=== PATIENT | female | born 1930 | race Caucasian/White ===

== ENCOUNTER 2018-01-01 07:32 | Inpatient (IN) | payer OTHER ==
[~2018-01-01] VITALS: Ht 157.5 cm; Wt 62.8 kg
[~2018-01-01 07:32] MED LIST: NOHOMEMEDS
[2018-01-01 08:41] LABS: ALBUMIN 3.4 g/dL (3.2-4.8)
[2018-01-01 08:42] LABS: CHLORIDE 98 mEq/L (99-109); POTASSIUM 3.5 mEq/L (3.7-5.4); SODIUM 136 mEq/L (136-147)
[2018-01-01 08:43] LABS: HEMATOCRIT 37.4 % (36.0-46.0); HEMOGLOBIN 12.1 G/DL (11.9-15.5); MCH 29.7 PG (29.0-34.0); MCHC 32.4 G/DL (30.0-36.0); MCV 91.7 FL (83-99); NRBC (%) 0.2 /100 WBC (0-0); PLATELET COUNT 228 K/uL (156-360); RBC DIS.WIDTH-CV 15.5 % (11.8-14.6); RBC DIS.WIDTH-SD 51.9 % (39-53); RED BLOOD COUNT 4.08 M/uL (3.80-5.20)
[2018-01-01 08:44] LABS: GLUCOSE 102 mg/dL (70-99); TOTAL PROTEIN 6.3 g/dL (6.4-8.3)
[2018-01-01 08:47] LABS: ALKALINE PHOSPHATASE 66 IU/L (3-129)
[2018-01-01 08:48] LABS: CREATININE 1.1 mg/dL (0.6-1.3); GFR ESTIMATE (CALCULATED) 50 mL/min/
[2018-01-01 08:49] LABS: AST (GOT) 38 IU/L (2-34); UREA NITROGEN (BUN) 24 mg/dL (9-23)
[2018-01-01 08:51] LABS: ALT (GPT) 37 IU/L (3-49)
[2018-01-01 08:53] LABS: TROP-I INTERPRETATION NEGATIVE; TROPONIN-I 0.05 ng/mL (0.0-0.30)
[2018-01-01] MEDS ORDERED: DILTIAZEM 24HR240 MG PO (10:47)
[2018-01-01] MEDS ORDERED: FUROSEMIDE40 MG PO (10:47)
[2018-01-01] MEDS ORDERED: PREDNISONE10 MG PO (10:47)
[2018-01-01] MEDS ORDERED: PRAVASTATIN SOD40 MG PO (10:48)
[2018-01-01] MEDS ORDERED: METOPROLOL TART25 MG PO (10:48)
[2018-01-01] MEDS ORDERED: LOSARTAN POTAS100 MG PO (10:49)
[2018-01-01] MEDS ORDERED: VITAMIN D31000 UNIT PO (10:50)
[2018-01-01] MEDS ORDERED: ELIQUIS2.5 MG PO (10:50)
[2018-01-01] MEDS ORDERED: KLOR-CON 1010 ME1 PO (10:51)
[2018-01-01] MEDS ORDERED: LO-DOSE ASPIRIN81 M2 PO (10:51)
[2018-01-01 14:38] VITALS: BP 113/58
[2018-01-01 20:21] VITALS: BP 125/77
[2018-01-02] VITALS (7 sets, daily range): BP systolic 102–162; BP diastolic 53–81
[2018-01-02 05:55] LABS: BASOPHIL (%) 0 % (0-1); EOSINOPHIL (%) 0 % (0-5); HEMATOCRIT 31.7 % (36.0-46.0); IMMATURE GRANULOCYTE (%) 0.8 % (0.0-0.7); LYMPHOCYTE (%) 9.9 % (15-42); LYMPHOCYTE COUNT 0.7 K/uL (1.0-2.8); MCH 28.8 PG (29.0-34.0); MCHC 31.5 G/DL (30.0-36.0); MCV 91.4 FL (83-99); MONOCYTE (%) 8.1 % (3-12); MONOCYTE COUNT 0.6 K/uL (0-0.8); NEUTROPHIL (%) 81.2 % (45-76); NEUTROPHIL COUNT 6.1 K/uL (1.8-6.4); PLATELET COUNT 203 K/uL (156-360); RBC DIS.WIDTH-CV 15.8 % (11.8-14.6); RBC DIS.WIDTH-SD 52.4 % (39-53); RED BLOOD COUNT 3.47 M/uL (3.80-5.20); WHITE BLOOD COUNT 7.5 K/uL (4.1-10.2)
[2018-01-02 06:13] LABS: CHLORIDE 101 MEQ/L (99-109); CREATININE 1.3 MG/DL (0.6-1.3); GFR ESTIMATE (CALCULATED) 41 mL/min/; GLUCOSE 111 mg/dL (70-99); POTASSIUM 3.8 MEQ/L (3.7-5.4); SODIUM 138 MEQ/L (136-147); UREA NITROGEN (BUN) 22 mg/dL (9-23)
[2018-01-03 08:11] VITALS: BP 135/66
[2018-01-03 11:50] VITALS: BP 133/67
[2018-01-03 15:32] VITALS: BP 129/67
[2018-01-03 19:41] VITALS: BP 134/61
[2018-01-03 23:37] VITALS: BP 132/71
[2018-01-04 03:15] VITALS: BP 137/68
[2018-01-04 06:29] LABS: HEMATOCRIT 32.9 % (36.0-46.0); HEMOGLOBIN 10.3 G/DL (11.9-15.5); MCH 28.8 PG (29.0-34.0); MCHC 31.3 G/DL (30.0-36.0); MCV 91.9 FL (83-99); PLATELET COUNT 246 K/uL (156-360); RBC DIS.WIDTH-CV 15.7 % (11.8-14.6); RBC DIS.WIDTH-SD 53.2 % (39-53); RED BLOOD COUNT 3.58 M/uL (3.80-5.20); WHITE BLOOD COUNT 7.8 K/uL (4.1-10.2)
[2018-01-04 06:49] LABS: CHLORIDE 103 MEQ/L (99-109); CREATININE 1.1 MG/DL (0.6-1.3); GFR ESTIMATE (CALCULATED) 50 mL/min/; GLUCOSE 103 mg/dL (70-99); SODIUM 137 MEQ/L (136-147); UREA NITROGEN (BUN) 19 mg/dL (9-23)
[2018-01-04 06:53] LABS: BASOPHIL (%) 0.1 % (0-1); EOSINOPHIL (%) 0.3 % (0-5); IMMATURE GRANULOCYTE (%) 0.9 % (0.0-0.7); LYMPHOCYTE (%) 13.6 % (15-42); LYMPHOCYTE COUNT 1.1 K/uL (1.0-2.8); MONOCYTE (%) 6.9 % (3-12); MONOCYTE COUNT 0.5 K/uL (0-0.8); NEUTROPHIL (%) 78.2 % (45-76); NEUTROPHIL COUNT 6.1 K/uL (1.8-6.4)
[2018-01-04 07:38] VITALS: BP 145/66
[2018-01-04 10:50] VITALS: BP 129/59
[2018-01-04 15:43] VITALS: BP 157/65
[2018-01-04 19:18] VITALS: BP 169/77
[2018-01-04 23:13] VITALS: BP 142/72
[2018-01-05 03:32] VITALS: BP 153/76
[2018-01-05 08:39] VITALS: BP 151/75
[2018-01-05 12:53] VITALS: BP 147/68
[2018-01-05 16:46] VITALS: BP 173/80
[2018-01-05 23:53] VITALS: BP 147/72
[2018-01-06 08:24] VITALS: BP 155/77
[2018-01-06] MEDS ORDERED: TYLENOL REGULA325 MG PO (15:49)
[2018-01-06] MEDS ORDERED: ADVAIR HFA120 INHAL1 IH (16:17)
[2018-01-06] MEDS ORDERED: PROAIR HFA8.5 GM IH (16:17)
[2018-01-06 16:44] VITALS: BP 152/72
[2018-01-07] MEDS ORDERED: PROAIR HFA8.5 GM IH (22:21)
[2018-01-07] MEDS ORDERED: ADVAIR HFA120 INHAL1 IH (22:22)
== END 2018-01-06 17:55 | disposition home health service (06) | DRG 194 ==
LOC: EME 07:32 → EDOF 12:10 → 3EAST 12:10 → ENRESERV 12:41 → EDOF 12:47 → ENRESERV 13:23 → 3EAST 13:43
PROVIDERS: Family Medicine Sports Medicine; Nurse Practitioner Family
DX: J10.00 Influenza due to other identified influenza virus with unspecified type of pneumonia (principal); J44.0 Chronic obstructive pulmonary disease with (acute) lower respiratory infection; J44.1 Chronic obstructive pulmonary disease with (acute) exacerbation; J90 Pleural effusion, not elsewhere classified; J10.1 Influenza due to other identified influenza virus with other respiratory manifestations; B97.89 Other viral agents as the cause of diseases classified elsewhere; J18.9 Pneumonia, unspecified organism; R09.02 Hypoxemia; N18.9 Chronic kidney disease, unspecified; I48.0 Paroxysmal atrial fibrillation; K21.9 Gastro-esophageal reflux disease without esophagitis; I25.10 Atherosclerotic heart disease of native coronary artery without angina pectoris; I12.9 Hypertensive chronic kidney disease with stage 1 through stage 4 chronic kidney disease, or unspecified chronic kidney disease; D64.9 Anemia, unspecified; E78.5 Hyperlipidemia, unspecified; R80.9 Proteinuria, unspecified; Z87.891 Personal history of nicotine dependence; Z79.01 Long term (current) use of anticoagulants; Z79.82 Long term (current) use of aspirin; Z99.81 Dependence on supplemental oxygen; I25.2 Old myocardial infarction; Z88.2 Allergy status to sulfonamides; Z88.6 Allergy status to analgesic agent; Z91.013 Allergy to seafood
CPT/HCPCS: 71045; 71046; 80048; 80053; 83605; 83880; 84484; 85025; 85027; 87040; 87449; 87502; 90686; 93005; 94640; 94640 76; 94760; 94799; 97530 GP; 99202; 99281; 99285; J0456; J0696; J1956; J7030; J7512

== ENCOUNTER 2018-01-07 20:38 | Inpatient (IN) | payer OTHER ==
[~2018-01-07] VITALS: Ht 157.5 cm; Wt 64.2 kg
[~2018-01-07 20:38] MED LIST changes: +ADVAIR HFA120 INHAL1 IH; +DILTIAZEM 24HR240 MG PO; +ELIQUIS2.5 MG PO; +FUROSEMIDE40 MG PO; +KLOR-CON 1010 ME1 PO; +LO-DOSE ASPIRIN81 M2 PO; +LOSARTAN POTAS100 MG PO; +METOPROLOL TART25 MG PO; +PRAVASTATIN SOD40 MG PO; +PREDNISONE10 MG PO; +PROAIR HFA8.5 GM IH; +TYLENOL REGULA325 MG PO; +VITAMIN D31000 UNIT PO
[2018-01-07 21:08] LABS: HEMATOCRIT 36.8 % (36.0-46.0); MCH 29.5 PG (29.0-34.0); MCHC 32.6 G/DL (30.0-36.0); MCV 90.4 FL (83-99); NRBC (%) 0.1 /100 WBC (0-0); RBC DIS.WIDTH-CV 14.6 % (11.8-14.6); RBC DIS.WIDTH-SD 48.9 % (39-53); RED BLOOD COUNT 4.07 M/uL (3.80-5.20); WHITE BLOOD COUNT 14.6 K/uL (4.1-10.2)
[2018-01-07 21:11] LABS: PLATELET COUNT 408 K/uL (156-360)
[2018-01-07 21:34] LABS: TROP-I INTERPRETATION NEGATIVE; TROPONIN-I 0.04 ng/mL (0.0-0.30)
[2018-01-07 21:39] LABS: CHLORIDE 100 MEQ/L (99-109); GFR ESTIMATE (CALCULATED) 56 mL/min/; GLUCOSE 127 mg/dL (70-99); POTASSIUM 3.7 MEQ/L (3.7-5.4); SODIUM 140 MEQ/L (136-147); UREA NITROGEN (BUN) 20 mg/dL (9-23)
[2018-01-07 21:50] LABS: CARBON DIOXIDE (BICARBONATE) 34.4 MEQ/L (20-31)
[2018-01-07] MEDS ORDERED: PROAIR HFA8.5 GM IH (22:21)
[2018-01-07] MEDS ORDERED: ADVAIR HFA120 INHAL1 IH (22:22)
[2018-01-08 03:20] VITALS: BP 141/78
[2018-01-08 08:00] VITALS: BP 140/85
[2018-01-08 09:58] LABS: BASE EXCESS 8.5 mEq/L (-3 to +3); BICARBONATE 33.4 mEq/L (22-26); CARBOXY HGB 4.2 % (0-5); METHEMOGLOBIN 1.3 % (0-1.5); PCO2 47 mm Hg (35-45); PO2 65 mm Hg (80-100); pH 7.46 (7.35-7.45)
[2018-01-08 09:59] LABS: COMMENTS - BLOOD GASES A+C; DEVICE NC; O2 FLOW 3 L/MIN; SITE LR
[2018-01-08 11:00] VITALS: BP 131/77
[2018-01-08 13:10] LABS: TROP-I INTERPRETATION NEGATIVE; TROPONIN-I 0.04 ng/mL (0.0-0.30)
[2018-01-08 15:55] VITALS: BP 125/68
[2018-01-08 18:38] LABS: TROP-I INTERPRETATION NEGATIVE; TROPONIN-I 0.03 ng/mL (0.0-0.30)
[2018-01-08 20:31] VITALS: BP 146/87
[2018-01-08 23:23] VITALS: BP 154/88
[2018-01-09 00:34] LABS: TROP-I INTERPRETATION NEGATIVE; TROPONIN-I 0.03 ng/mL (0.0-0.30)
[2018-01-09 05:00] VITALS: BP 145/86
[2018-01-09 06:19] LABS: BASOPHIL (%) 0.1 % (0-1); EOSINOPHIL (%) 0 % (0-5); IMMATURE GRANULOCYTE (%) 1.1 % (0.0-0.7); LYMPHOCYTE COUNT 0.5 K/uL (1.0-2.8); MCH 28.8 PG (29.0-34.0); MCHC 32.4 G/DL (30.0-36.0); MONOCYTE (%) 2.6 % (3-12); MONOCYTE COUNT 0.4 K/uL (0-0.8); NEUTROPHIL (%) 93.2 % (45-76); NEUTROPHIL COUNT 14.5 K/uL (1.8-6.4); NRBC (%) 0.2 /100 WBC (0-0); PLATELET COUNT 427 K/uL (156-360); RBC DIS.WIDTH-CV 14.8 % (11.8-14.6); RBC DIS.WIDTH-SD 47.8 % (39-53); RED BLOOD COUNT 3.82 M/uL (3.80-5.20); WHITE BLOOD COUNT 15.5 K/uL (4.1-10.2)
[2018-01-09 06:30] LABS: TROP-I INTERPRETATION NEGATIVE; TROPONIN-I 0.04 ng/mL (0.0-0.30)
[2018-01-09 06:41] LABS: CHLORIDE 94 MEQ/L (99-109); GFR ESTIMATE (CALCULATED) 35 mL/min/; POTASSIUM 3.6 MEQ/L (3.7-5.4); SODIUM 136 MEQ/L (136-147); UREA NITROGEN (BUN) 24 mg/dL (9-23)
[2018-01-09 06:43] LABS: CREATININE 1.5 MG/DL (0.6-1.3); GLUCOSE 209 mg/dL (70-99)
[2018-01-09 08:05] VITALS: BP 147/69
[2018-01-09 11:21] VITALS: BP 139/71
[2018-01-09 12:35] LABS: TROP-I INTERPRETATION NEGATIVE; TROPONIN-I 0.03 ng/mL (0.0-0.30)
[2018-01-09 16:44] VITALS: BP 147/87
[2018-01-09 18:50] LABS: TROP-I INTERPRETATION NEGATIVE; TROPONIN-I 0.04 ng/mL (0.0-0.30)
[2018-01-09 21:00] VITALS: BP 154/82
[2018-01-10 00:57] VITALS: BP 138/84
[2018-01-10 01:01] LABS: TROP-I INTERPRETATION NEGATIVE; TROPONIN-I 0.04 ng/mL (0.0-0.30)
[2018-01-10 03:35] VITALS: BP 146/66
[2018-01-10 07:48] LABS: BASOPHIL (%) 0.1 % (0-1); EOSINOPHIL (%) 0 % (0-5); HEMATOCRIT 32.1 % (36.0-46.0); HEMOGLOBIN 10.4 G/DL (11.9-15.5); IMMATURE GRANULOCYTE (%) 0.7 % (0.0-0.7); LYMPHOCYTE (%) 2.2 % (15-42); LYMPHOCYTE COUNT 0.4 K/uL (1.0-2.8); MCH 29.4 PG (29.0-34.0); MCHC 32.4 G/DL (30.0-36.0); MCV 90.7 FL (83-99); MONOCYTE (%) 4.8 % (3-12); MONOCYTE COUNT 0.9 K/uL (0-0.8); NEUTROPHIL (%) 92.2 % (45-76); NEUTROPHIL COUNT 17.7 K/uL (1.8-6.4); NRBC (%) 0.1 /100 WBC (0-0); PLATELET COUNT 407 K/uL (156-360); RBC DIS.WIDTH-CV 15.1 % (11.8-14.6); RBC DIS.WIDTH-SD 49.7 % (39-53); RED BLOOD COUNT 3.54 M/uL (3.80-5.20); WHITE BLOOD COUNT 19.2 K/uL (4.1-10.2)
[2018-01-10 07:54] LABS: INTER. NORMALIZED RATIO 1.4
[2018-01-10 07:58] LABS: PTT 23.1 SEC (25-37)
[2018-01-10 08:04] LABS: TROP-I INTERPRETATION NEGATIVE; TROPONIN-I 0.05 ng/mL (0.0-0.30)
[2018-01-10 08:14] LABS: CHLORIDE 96 MEQ/L (99-109); CREATININE 1.7 MG/DL (0.6-1.3); GFR ESTIMATE (CALCULATED) 30 mL/min/; GLUCOSE 159 mg/dL (70-99); POTASSIUM 3.5 MEQ/L (3.7-5.4); SODIUM 137 MEQ/L (136-147); UREA NITROGEN (BUN) 33 mg/dL (9-23)
[2018-01-10 08:18] VITALS: BP 134/61
[2018-01-10 11:05] VITALS: BP 141/64
[2018-01-10 13:50] LABS: TROP-I INTERPRETATION NEGATIVE; TROPONIN-I 0.05 ng/mL (0.0-0.30)
[2018-01-10 14:54] LABS: TYPE OF FLUID PLEURAL
[2018-01-10 15:07] VITALS: BP 144/74
[2018-01-10 15:32] LABS: APPEARANCE HAZY-YELLOW; BODY FLUID RBC'S 1000 /MM^3 (0-100); BODY FLUID WBC'S 157 /MM^3 (0-500)
[2018-01-10 15:37] LABS: BODY FLUID EOSINOPHILS 0 % (0-25); MONONUCLEAR WBC'S 73 %; POLYNUCLEAR WBC'S 27 % (0-25)
[2018-01-10 15:53] LABS: BODY FLUID GLUCOSE 205 MG/DL; BODY FLUID LDH 103 IU/L; BODY FLUID PROTEIN < 3.0 G/DL
[2018-01-10 18:38] LABS: TROP-I INTERPRETATION NEGATIVE; TROPONIN-I 0.05 ng/mL (0.0-0.30)
[2018-01-10 18:45] LABS: GLUCOSE 151 mg/dL (70-99); LACTATE DEHYDROGENASE 322 IU/L (20-246); TOTAL PROTEIN 5.9 G/DL (6.4-8.3)
[2018-01-10 18:54] VITALS: BP 134/81
[2018-01-11] VITALS (7 sets, daily range): BP systolic 112–149; BP diastolic 59–86
[2018-01-11 06:15] LABS: CHLORIDE 97 MEQ/L (99-109); CREATININE 1.5 MG/DL (0.6-1.3); GFR ESTIMATE (CALCULATED) 35 mL/min/; GLUCOSE 142 mg/dL (70-99); POTASSIUM 3.6 MEQ/L (3.7-5.4); SODIUM 138 MEQ/L (136-147); UREA NITROGEN (BUN) 39 mg/dL (9-23)
[2018-01-11 06:31] LABS: BASOPHIL (%) 0.2 % (0-1); EOSINOPHIL (%) 0 % (0-5); HEMOGLOBIN 11.3 G/DL (11.9-15.5); IMMATURE GRANULOCYTE (%) 1.7 % (0.0-0.7); LYMPHOCYTE (%) 2.5 % (15-42); LYMPHOCYTE COUNT 0.5 K/uL (1.0-2.8); MCH 29.7 PG (29.0-34.0); MCHC 32.3 G/DL (30.0-36.0); MCV 91.9 FL (83-99); MONOCYTE (%) 6.9 % (3-12); MONOCYTE COUNT 1.4 K/uL (0-0.8); NEUTROPHIL (%) 88.7 % (45-76); NEUTROPHIL COUNT 17.6 K/uL (1.8-6.4); PLATELET COUNT 443 K/uL (156-360); RBC DIS.WIDTH-CV 15.1 % (11.8-14.6); RBC DIS.WIDTH-SD 50.4 % (39-53); RED BLOOD COUNT 3.81 M/uL (3.80-5.20); WHITE BLOOD COUNT 19.8 K/uL (4.1-10.2)
[2018-01-12 04:01] VITALS: BP 140/82
[2018-01-12 05:49] LABS: BASOPHIL (%) 0.2 % (0-1); EOSINOPHIL (%) 0 % (0-5); HEMATOCRIT 35.5 % (36.0-46.0); HEMOGLOBIN 11.2 G/DL (11.9-15.5); IMMATURE GRANULOCYTE (%) 1.8 % (0.0-0.7); LYMPHOCYTE (%) 2.5 % (15-42); LYMPHOCYTE COUNT 0.5 K/uL (1.0-2.8); MCH 29.5 PG (29.0-34.0); MCHC 31.5 G/DL (30.0-36.0); MCV 93.4 FL (83-99); MONOCYTE (%) 6.4 % (3-12); MONOCYTE COUNT 1.4 K/uL (0-0.8); NEUTROPHIL (%) 89.1 % (45-76); NEUTROPHIL COUNT 19.1 K/uL (1.8-6.4); NRBC (%) 0.1 /100 WBC (0-0); PLATELET COUNT 357 K/uL (156-360); RBC DIS.WIDTH-SD 51.1 % (39-53); WHITE BLOOD COUNT 21.4 K/uL (4.1-10.2)
[2018-01-12 06:10] LABS: CHLORIDE 101 MEQ/L (99-109); CREATININE 1.4 MG/DL (0.6-1.3); GFR ESTIMATE (CALCULATED) 38 mL/min/; GLUCOSE 131 mg/dL (70-99); POTASSIUM 4.3 MEQ/L (3.7-5.4); SODIUM 137 MEQ/L (136-147); UREA NITROGEN (BUN) 42 mg/dL (9-23)
[2018-01-12 08:56] VITALS: BP 134/64
[2018-01-12 11:50] VITALS: BP 129/67
[2018-01-12 15:35] VITALS: BP 139/66
[2018-01-12 20:00] VITALS: BP 136/66
[2018-01-12] MEDS ORDERED: TRAMADOL HCL50 MG PO (21:53)
[2018-01-12 23:56] VITALS: BP 141/80
[2018-01-13 04:18] VITALS: BP 138/79
[2018-01-13 06:25] LABS: BASOPHIL (%) 0.3 % (0-1); BASOPHIL COUNT 0.1 K/uL (0-0.1); EOSINOPHIL (%) 0.2 % (0-5); HEMATOCRIT 34.9 % (36.0-46.0); IMMATURE GRANULOCYTE (%) 2.6 % (0.0-0.7); LYMPHOCYTE (%) 2.9 % (15-42); LYMPHOCYTE COUNT 0.6 K/uL (1.0-2.8); MCHC 31.5 G/DL (30.0-36.0); MCV 92.1 FL (83-99); MONOCYTE (%) 6.4 % (3-12); MONOCYTE COUNT 1.3 K/uL (0-0.8); NEUTROPHIL (%) 87.6 % (45-76); NEUTROPHIL COUNT 17.5 K/uL (1.8-6.4); NRBC (%) 0.1 /100 WBC (0-0); PLATELET COUNT 368 K/uL (156-360); RBC DIS.WIDTH-CV 14.7 % (11.8-14.6); RED BLOOD COUNT 3.79 M/uL (3.80-5.20); WHITE BLOOD COUNT 19.9 K/uL (4.1-10.2)
[2018-01-13 06:56] LABS: ALKALINE PHOSPHATASE 44 IU/L (3-129); ALT (GPT) 21 IU/L (3-49); AST (GOT) 19 IU/L (2-34); CHLORIDE 100 MEQ/L (99-109); CREATININE 1.2 MG/DL (0.6-1.3); DIRECT BILIRUBIN 0.3 mg/dL (0.0-0.3); GFR ESTIMATE (CALCULATED) 45 mL/min/; GLUCOSE 129 mg/dL (70-99); POTASSIUM 4.1 MEQ/L (3.7-5.4); SODIUM 136 MEQ/L (136-147); TOTAL BILIRUBIN 1.1 MG/DL (0.0-1.0); TOTAL PROTEIN 5.9 G/DL (6.4-8.3); UREA NITROGEN (BUN) 37 mg/dL (9-23)
[2018-01-13 07:14] LABS: LIPASE 57 U/L (1.0-51.0)
[2018-01-13 10:27] VITALS: BP 141/67
[2018-01-13 15:40] LABS: APPEARANCE SL.HAZY ((CLEAR)); BILIRUBIN NEGATIVE; BLOOD MODERATE; COLOR YELLOW ((YELLOW)); GLUCOSE (STRIP) 50; KETONES NEGATIVE; LEUKOCYTES NEGATIVE; NITRITE NEGATIVE; PROTEIN (STRIP) 100; SPECIFIC GRAVITY 1.019 (1.000-1.030); UROBILINOGEN 0.2 MG/DL (0.2-1.0)
[2018-01-13 15:54] LABS: BACTERIA RARE /HPF; EPITHELIAL CELLS RARE /HPF; MUCUS TRACE /LPF; WHITE BLOOD CELLS 0-5 /HPF (0-5)
== END 2018-01-13 16:45 | DRG 190 ==
LOC: EME → EDBD 20:38 → 4EAST 22:48 → EDOF 22:48 → ENRESERV 23:05 → 2EAST 01-08 02:21 → ENRESERV 01-08 10:17 → 2EAST 01-08 10:21 → ENRESERV 01-08 10:23 → 4EAST 01-08 11:08 → ENRESERV 01-09 12:53 → CANRESERV 01-09 12:53 → ENRESERV 01-09 23:49 → CANRESERV 01-09 23:49 → ENPENDDIS 01-13 → 4EAST 01-13 16:45
PROVIDERS: Family Medicine Sports Medicine; Radiology Diagnostic Radiology
PROC: 0W9B3ZZ Drainage of Left Pleural Cavity, Percutaneous Approach (ICD-10-PCS; principal; 2018-01-10)
DX: J44.0 Chronic obstructive pulmonary disease with (acute) lower respiratory infection (principal); J18.9 Pneumonia, unspecified organism; J44.1 Chronic obstructive pulmonary disease with (acute) exacerbation; J96.01 Acute respiratory failure with hypoxia; N17.9 Acute kidney failure, unspecified; T50.8X5A Adverse effect of diagnostic agents, initial encounter; E87.6 Hypokalemia; T50.1X5A Adverse effect of loop [high-ceiling] diuretics, initial encounter; I13.0 Hypertensive heart and chronic kidney disease with heart failure and stage 1 through stage 4 chronic kidney disease, or unspecified chronic kidney disease; I50.810 Right heart failure, unspecified; N18.3 Chronic kidney disease, stage 3 (moderate); E87.70 Fluid overload, unspecified; I25.10 Atherosclerotic heart disease of native coronary artery without angina pectoris; I27.29 Other secondary pulmonary hypertension; I48.2 Chronic atrial fibrillation; K21.9 Gastro-esophageal reflux disease without esophagitis; M10.9 Gout, unspecified; E78.5 Hyperlipidemia, unspecified; Z79.01 Long term (current) use of anticoagulants; Z99.81 Dependence on supplemental oxygen; I25.2 Old myocardial infarction; Z88.2 Allergy status to sulfonamides; Z79.82 Long term (current) use of aspirin; Z87.891 Personal history of nicotine dependence
CPT/HCPCS: 36600; 71045; 71046; 71275; 76705; 76942; 80048; 80076; 81003; 82803; 82945; 82947 91; 82948; 83605; 83615; 83615 91; 83690; 83880; 84145 90; 84155; 84157; 84484; 85025; 85027; 85610; 85730; 87040; 87070; 87075; 87116; 87205; 87206; 88108; 88305; 89051; 93005; 93970; 94640; 94640 76; 94799; 97530 GP; 99202; 99281; 99285; J0456; J0692; J0696; J1940; J2270; J2920; J2930; J3370; J3480; J7030; J7512

== ENCOUNTER 2018-06-09 03:19 | Inpatient (IN) | payer OTHER ==
[~2018-06-09] VITALS: Ht 157.5 cm; Wt 59.5 kg
[~2018-06-09 03:19] MED LIST changes: +TRAMADOL HCL50 MG PO
[2018-06-09 03:57] LABS: BASOPHIL (%) 0.6 % (0-1); BASOPHIL COUNT 0.1 K/uL (0-0.1); EOSINOPHIL (%) 1.2 % (0-5); EOSINOPHIL COUNT 0.1 K/uL (0-0.3); HEMATOCRIT 42.5 % (36.0-46.0); HEMOGLOBIN 12.5 G/DL (11.9-15.5); IMMATURE GRANULOCYTE (%) 0.9 % (0.0-0.7); LYMPHOCYTE (%) 5.1 % (15-42); LYMPHOCYTE COUNT 0.6 K/uL (1.0-2.8); MCH 24.4 PG (29.0-34.0); MCHC 29.4 G/DL (30.0-36.0); MONOCYTE (%) 6.7 % (3-12); MONOCYTE COUNT 0.8 K/uL (0-0.8); NEUTROPHIL (%) 85.5 % (45-76); PLATELET COUNT 434 K/uL (156-360); RBC DIS.WIDTH-SD 48.3 % (39-53); RED BLOOD COUNT 5.12 M/uL (3.80-5.20); WHITE BLOOD COUNT 11.7 K/uL (4.1-10.2)
[2018-06-09 04:08] LABS: ALBUMIN 3.4 g/dL (3.2-4.8); CHLORIDE 92 mEq/L (99-109); POTASSIUM 5.2 mEq/L (3.7-5.4); SODIUM 141 mEq/L (136-147)
[2018-06-09 04:10] LABS: GLUCOSE 172 mg/dL (70-99); TOTAL PROTEIN 8.1 g/dL (6.4-8.3)
[2018-06-09 04:12] LABS: TOTAL BILIRUBIN 1.6 mg/dL (0.0-1.0)
[2018-06-09 04:14] LABS: ALKALINE PHOSPHATASE 84 IU/L (3-129); CREATININE 1.2 mg/dL (0.6-1.3); GFR ESTIMATE (CALCULATED) 45 mL/min/
[2018-06-09 04:15] LABS: UREA NITROGEN (BUN) 24 mg/dL (9-23)
[2018-06-09 04:16] LABS: AST (GOT) 39 IU/L (2-34)
[2018-06-09 04:17] LABS: ALT (GPT) 31 IU/L (3-49)
[2018-06-09 04:26] LABS: TROP-I INTERPRETATION NEGATIVE; TROPONIN-I 0.03 ng/mL (0.0-0.30)
[2018-06-09 04:28] LABS: BASE EXCESS 15.6 mEq/L (-3 to +3); BICARBONATE 46.2 mEq/L (22-26); CARBOXY HGB 2.6 % (0-5); METHEMOGLOBIN 1.1 % (0-1.5); O2 SATURATION (CALCULATED) 96.6 % (95-99); PCO2 96 mm Hg (35-45); PO2 82 mm Hg (80-100); pH 7.29 (7.35-7.45)
[2018-06-09 04:29] LABS: DEVICE HHNC; FI02 60 %; O2 FLOW 20 L/MIN; SITE LR; TOTAL RESP RATE 17 resp/min
[2018-06-09] MEDS ORDERED: ANORO ELLIPTA1 EACH IH (04:49)
[2018-06-09 06:17] LABS: COMMENTS - BLOOD GASES C+; DEVICE HHFNC; FI02 60 %; O2 FLOW 25 L/MIN
[2018-06-09 06:19] LABS: SITE LR
[2018-06-09 06:20] LABS: O2 SATURATION (CALCULATED) 95.5 % (95-99); PCO2 94 mm Hg (35-45); PO2 74 mm Hg (80-100)
[2018-06-09 06:21] LABS: BASE EXCESS 15.9 mEq/L (-3 to +3); BICARBONATE 46.3 mEq/L (22-26); CARBOXY HGB 2.6 % (0-5); METHEMOGLOBIN 1 % (0-1.5)
[2018-06-09 09:42] LABS: TYPE OF FLUID PLEURAL
[2018-06-09 10:00] LABS: APPEARANCE SLIGHTLY CLOUDY; BODY FLUID RBC'S 2000 /MM^3 (0-100); BODY FLUID WBC'S 419 /MM^3 (0-500)
[2018-06-09 10:50] LABS: BODY FLUID EOSINOPHILS 6 % (0-25); MONONUCLEAR WBC'S 87 %; POLYNUCLEAR WBC'S 7 % (0-25)
[2018-06-09 11:13] VITALS: BP 153/86
[2018-06-09 11:17] LABS: BODY FLUID GLUCOSE 176 MG/DL; BODY FLUID LDH 71 IU/L; BODY FLUID PROTEIN < 3.0 G/DL
[2018-06-09 15:29] VITALS: BP 150/79
[2018-06-09 16:59] LABS: TYPE OF FLUID PLEURAL
[2018-06-09 17:38] LABS: BODY FLUID GLUCOSE 228 MG/DL; BODY FLUID LDH 75 IU/L; BODY FLUID PROTEIN < 3.0 G/DL
[2018-06-09 17:48] LABS: APPEARANCE CLOUDY-YELLOW; BODY FLUID EOSINOPHILS 0 % (0-25); BODY FLUID RBC'S 14000 /MM^3 (0-100); BODY FLUID WBC'S 990 /MM^3 (0-500); MONONUCLEAR WBC'S 93 %; POLYNUCLEAR WBC'S 7 % (0-25)
[2018-06-09 19:55] VITALS: BP 112/54
[2018-06-10 00:10] VITALS: BP 122/62
[2018-06-10 04:41] VITALS: BP 119/65
[2018-06-10 05:21] LABS: BASOPHIL (%) 0.1 % (0-1); EOSINOPHIL (%) 0 % (0-5); HEMATOCRIT 35.9 % (36.0-46.0); IMMATURE GRANULOCYTE (%) 0.6 % (0.0-0.7); LYMPHOCYTE (%) 2.4 % (15-42); LYMPHOCYTE COUNT 0.3 K/uL (1.0-2.8); MCH 24.1 PG (29.0-34.0); MCHC 29.2 G/DL (30.0-36.0); MCV 82.5 FL (83-99); MONOCYTE (%) 7.5 % (3-12); NEUTROPHIL (%) 89.4 % (45-76); NEUTROPHIL COUNT 11.4 K/uL (1.8-6.4); PLATELET COUNT 403 K/uL (156-360); RBC DIS.WIDTH-CV 16.1 % (11.8-14.6); RBC DIS.WIDTH-SD 48.5 % (39-53); RED BLOOD COUNT 4.35 M/uL (3.80-5.20); WHITE BLOOD COUNT 12.7 K/uL (4.1-10.2)
[2018-06-10 05:26] LABS: HEMOGLOBIN 10.5 G/DL (11.9-15.5)
[2018-06-10 05:55] LABS: CHLORIDE 91 MEQ/L (99-109); GLUCOSE 192 mg/dL (70-99); POTASSIUM 4.2 MEQ/L (3.7-5.4); SODIUM 137 MEQ/L (136-147); UREA NITROGEN (BUN) 36 mg/dL (9-23)
[2018-06-10 06:13] LABS: CREATININE 1.8 MG/DL (0.6-1.3); GFR ESTIMATE (CALCULATED) 28 mL/min/
[2018-06-10 07:31] VITALS: BP 114/77
[2018-06-10 11:38] VITALS: BP 100/55
[2018-06-10 16:09] LABS: BASOPHIL (%) 0.1 % (0-1); EOSINOPHIL (%) 0.1 % (0-5); HEMATOCRIT 36.3 % (36.0-46.0); HEMOGLOBIN 10.4 G/DL (11.9-15.5); IMMATURE GRANULOCYTE (%) 0.4 % (0.0-0.7); LYMPHOCYTE (%) 2.9 % (15-42); LYMPHOCYTE COUNT 0.5 K/uL (1.0-2.8); MCH 23.6 PG (29.0-34.0); MCHC 28.7 G/DL (30.0-36.0); MCV 82.5 FL (83-99); MONOCYTE (%) 11.4 % (3-12); MONOCYTE COUNT 1.8 K/uL (0-0.8); NEUTROPHIL (%) 85.1 % (45-76); NEUTROPHIL COUNT 13.7 K/uL (1.8-6.4); PLATELET COUNT 389 K/uL (156-360); RBC DIS.WIDTH-CV 16.2 % (11.8-14.6); RBC DIS.WIDTH-SD 48.3 % (39-53); WHITE BLOOD COUNT 16.1 K/uL (4.1-10.2)
[2018-06-10 16:48] LABS: APPEARANCE CLOUDY ((CLEAR)); BILIRUBIN NEGATIVE; BLOOD SMALL; COLOR AMBER ((YELLOW)); GLUCOSE (STRIP) NEGATIVE; KETONES NEGATIVE; LEUKOCYTES LARGE; NITRITE NEGATIVE; PROTEIN (STRIP) 100; SPECIFIC GRAVITY 1.012 (1.000-1.030); UROBILINOGEN 0.2 MG/DL (0.2-1.0)
[2018-06-10 17:10] LABS: UR CREATININE CONCENTRATION 114.1 MG/DL
[2018-06-10 17:42] LABS: WHITE BLOOD CELLS TNTC /HPF (0-5)
[2018-06-10 17:44] LABS: BACTERIA 4+ /HPF; EPITHELIAL CELLS 4+ /HPF
[2018-06-10 17:47] LABS: HYALINE CASTS RARE /LPF
[2018-06-10 17:48] LABS: MUCUS TRACE /LPF
[2018-06-10 19:45] VITALS: BP 111/72
[2018-06-11 04:04] VITALS: BP 112/63
[2018-06-11 05:17] LABS: BASOPHIL (%) 0.2 % (0-1); EOSINOPHIL (%) 1.3 % (0-5); EOSINOPHIL COUNT 0.2 K/uL (0-0.3); HEMATOCRIT 36.8 % (36.0-46.0); HEMOGLOBIN 10.8 G/DL (11.9-15.5); IMMATURE GRANULOCYTE (%) 0.3 % (0.0-0.7); LYMPHOCYTE (%) 4.6 % (15-42); LYMPHOCYTE COUNT 0.5 K/uL (1.0-2.8); MCH 23.8 PG (29.0-34.0); MCHC 29.3 G/DL (30.0-36.0); MCV 81.2 FL (83-99); MONOCYTE (%) 11.6 % (3-12); MONOCYTE COUNT 1.4 K/uL (0-0.8); NEUTROPHIL COUNT 9.7 K/uL (1.8-6.4); PLATELET COUNT 379 K/uL (156-360); RBC DIS.WIDTH-CV 16.2 % (11.8-14.6); RED BLOOD COUNT 4.53 M/uL (3.80-5.20); WHITE BLOOD COUNT 11.8 K/uL (4.1-10.2)
[2018-06-11 06:08] LABS: CARBON DIOXIDE (BICARBONATE) > 40.0 MEQ/L (20-31); CHLORIDE 88 MEQ/L (99-109); GFR ESTIMATE (CALCULATED) 25 mL/min/; GLUCOSE 129 mg/dL (70-99); POTASSIUM 5.1 MEQ/L (3.7-5.4); SODIUM 138 MEQ/L (136-147); UREA NITROGEN (BUN) 50 mg/dL (9-23)
[2018-06-11 06:33] LABS: COMMENTS - BLOOD GASES C+; DEVICE NC; O2 FLOW 4.5 L/MIN; SITE RR
[2018-06-11 06:34] LABS: BASE EXCESS 19.9 mEq/L (-3 to +3); BICARBONATE 47.5 mEq/L (22-26); PCO2 70 mm Hg (35-45); PO2 60 mm Hg (80-100); TOTAL RESP RATE 16 resp/min; pH 7.44 (7.35-7.45)
[2018-06-11 07:48] VITALS: BP 132/78
[2018-06-11 10:12] LABS: STOOL OCCULT BLD 1ST SPECIMEN POSITIVE
[2018-06-11 12:39] VITALS: BP 113/66
[2018-06-11 16:22] LABS: APPEARANCE CLOUDY ((CLEAR)); BILIRUBIN NEGATIVE; BLOOD SMALL; COLOR YELLOW ((YELLOW)); GLUCOSE (STRIP) NEGATIVE; KETONES NEGATIVE; LEUKOCYTES LARGE; NITRITE NEGATIVE; PROTEIN (STRIP) 30; SPECIFIC GRAVITY 1.009 (1.000-1.030); UROBILINOGEN 0.2 MG/DL (0.2-1.0)
[2018-06-11 17:07] VITALS: BP 108/59
[2018-06-11 18:36] LABS: RED BLOOD CELLS 0-5 /HPF (0-5); WHITE BLOOD CELLS 40-50 /HPF (0-5)
[2018-06-11 18:37] LABS: AMORPHOUS URATES CRYSTALS 1+; BACTERIA 3+ /HPF; EPITHELIAL CELLS 1+ /HPF; MUCUS TRACE /LPF; UCUL ADDED? YES
[2018-06-11 19:19] VITALS: BP 101/62
[2018-06-11 23:22] VITALS: BP 133/59
[2018-06-12 04:35] VITALS: BP 143/76
[2018-06-12 05:35] LABS: BASOPHIL (%) 0.1 % (0-1); EOSINOPHIL (%) 0 % (0-5); HEMATOCRIT 37.3 % (36.0-46.0); HEMOGLOBIN 10.8 G/DL (11.9-15.5); IMMATURE GRANULOCYTE (%) 0.4 % (0.0-0.7); LYMPHOCYTE (%) 3.2 % (15-42); LYMPHOCYTE COUNT 0.4 K/uL (1.0-2.8); MCH 23.3 PG (29.0-34.0); MCV 80.6 FL (83-99); MONOCYTE (%) 4.7 % (3-12); MONOCYTE COUNT 0.5 K/uL (0-0.8); NEUTROPHIL (%) 91.6 % (45-76); NEUTROPHIL COUNT 10.4 K/uL (1.8-6.4); PLATELET COUNT 380 K/uL (156-360); RBC DIS.WIDTH-CV 16.1 % (11.8-14.6); RBC DIS.WIDTH-SD 47.4 % (39-53); RED BLOOD COUNT 4.63 M/uL (3.80-5.20); WHITE BLOOD COUNT 11.4 K/uL (4.1-10.2)
[2018-06-12 06:04] LABS: CHLORIDE 92 MEQ/L (99-109); CREATININE 1.8 MG/DL (0.6-1.3); GFR ESTIMATE (CALCULATED) 28 mL/min/; GLUCOSE 188 mg/dL (70-99); POTASSIUM 4.2 MEQ/L (3.7-5.4); SODIUM 138 MEQ/L (136-147); UREA NITROGEN (BUN) 44 mg/dL (9-23)
[2018-06-12 07:09] VITALS: BP 143/75
[2018-06-12 10:55] VITALS: BP 116/63
[2018-06-12 15:29] VITALS: BP 119/62
[2018-06-12 20:05] VITALS: BP 139/66
[2018-06-12 23:31] VITALS: BP 129/60
[2018-06-13 03:52] VITALS: BP 142/88
[2018-06-13 05:49] LABS: BASOPHIL (%) 0.2 % (0-1); EOSINOPHIL (%) 0.8 % (0-5); EOSINOPHIL COUNT 0.1 K/uL (0-0.3); HEMATOCRIT 38.1 % (36.0-46.0); HEMOGLOBIN 11.2 G/DL (11.9-15.5); IMMATURE GRANULOCYTE (%) 0.4 % (0.0-0.7); LYMPHOCYTE COUNT 0.6 K/uL (1.0-2.8); MCH 23.9 PG (29.0-34.0); MCHC 29.4 G/DL (30.0-36.0); MCV 81.2 FL (83-99); MONOCYTE (%) 10.4 % (3-12); MONOCYTE COUNT 1.4 K/uL (0-0.8); NEUTROPHIL (%) 84.2 % (45-76); NEUTROPHIL COUNT 11.7 K/uL (1.8-6.4); PLATELET COUNT 391 K/uL (156-360); RBC DIS.WIDTH-CV 16.2 % (11.8-14.6); RBC DIS.WIDTH-SD 47.4 % (39-53); RED BLOOD COUNT 4.69 M/uL (3.80-5.20); WHITE BLOOD COUNT 13.9 K/uL (4.1-10.2)
[2018-06-13 06:30] LABS: CHLORIDE 95 MEQ/L (99-109); CREATININE 1.5 MG/DL (0.6-1.3); GFR ESTIMATE (CALCULATED) 35 mL/min/; GLUCOSE 150 mg/dL (70-99); POTASSIUM 4.4 MEQ/L (3.7-5.4); SODIUM 139 MEQ/L (136-147); UREA NITROGEN (BUN) 41 mg/dL (9-23)
[2018-06-13 07:06] VITALS: BP 141/66
[2018-06-13 11:28] VITALS: BP 124/60
[2018-06-13 15:10] VITALS: BP 118/58
[2018-06-13 19:20] VITALS: BP 134/65
[2018-06-14 03:15] VITALS: BP 142/65
[2018-06-14 06:18] LABS: CHLORIDE 96 MEQ/L (99-109); CREATININE 1.3 MG/DL (0.6-1.3); GFR ESTIMATE (CALCULATED) 41 mL/min/; GLUCOSE 150 mg/dL (70-99); POTASSIUM 4.7 MEQ/L (3.7-5.4); SODIUM 140 MEQ/L (136-147); UREA NITROGEN (BUN) 40 mg/dL (9-23)
[2018-06-14 08:40] VITALS: BP 140/77
[2018-06-14 16:37] VITALS: BP 156/69
[2018-06-14 19:15] VITALS: BP 153/64
[2018-06-14 23:45] VITALS: BP 145/71
[2018-06-15] VITALS (7 sets, daily range): BP systolic 131–145; BP diastolic 64–71
[2018-06-15 05:29] LABS: BASOPHIL (%) 0.2 % (0-1); EOSINOPHIL (%) 0.4 % (0-5); EOSINOPHIL COUNT 0.1 K/uL (0-0.3); HEMATOCRIT 38.5 % (36.0-46.0); HEMOGLOBIN 11.3 G/DL (11.9-15.5); IMMATURE GRANULOCYTE (%) 0.9 % (0.0-0.7); LYMPHOCYTE COUNT 0.6 K/uL (1.0-2.8); MCH 23.7 PG (29.0-34.0); MCHC 29.4 G/DL (30.0-36.0); MCV 80.9 FL (83-99); MONOCYTE (%) 9.8 % (3-12); MONOCYTE COUNT 1.5 K/uL (0-0.8); NEUTROPHIL (%) 84.7 % (45-76); NEUTROPHIL COUNT 12.6 K/uL (1.8-6.4); PLATELET COUNT 383 K/uL (156-360); RBC DIS.WIDTH-CV 16.2 % (11.8-14.6); RBC DIS.WIDTH-SD 47.7 % (39-53); RED BLOOD COUNT 4.76 M/uL (3.80-5.20); WHITE BLOOD COUNT 14.9 K/uL (4.1-10.2)
[2018-06-15 06:47] LABS: CHLORIDE 94 MEQ/L (99-109); CREATININE 1.6 MG/DL (0.6-1.3); GFR ESTIMATE (CALCULATED) 33 mL/min/; GLUCOSE 141 mg/dL (70-99); SODIUM 140 MEQ/L (136-147); UREA NITROGEN (BUN) 45 mg/dL (9-23)
[2018-06-16] MEDS ORDERED: DOCUSATE SODIU100 MG PO (00:10)
[2018-06-16 03:59] VITALS: BP 140/68
[2018-06-16 06:28] LABS: SODIUM 141 MEQ/L (136-147)
[2018-06-16 06:36] LABS: CHLORIDE 94 MEQ/L (99-109); CREATININE 1.2 MG/DL (0.6-1.3); GFR ESTIMATE (CALCULATED) 45 mL/min/; GLUCOSE 141 mg/dL (70-99); POTASSIUM 4.1 MEQ/L (3.7-5.4); UREA NITROGEN (BUN) 39 mg/dL (9-23)
[2018-06-16 06:37] LABS: CARBON DIOXIDE (BICARBONATE) > 40.0 MEQ/L (20-31)
[2018-06-16 08:12] VITALS: BP 146/93
[2018-06-16 11:14] VITALS: BP 159/81
[2018-06-16 16:13] VITALS: BP 159/81
[2018-06-16 19:17] VITALS: BP 156/74
[2018-06-16 23:09] VITALS: BP 160/74
[2018-06-17 04:35] VITALS: BP 148/62
[2018-06-17 08:05] VITALS: BP 180/83
[2018-06-17 12:36] VITALS: BP 156/78
[2018-06-17 15:40] VITALS: BP 130/68
[2018-06-17] MEDS ORDERED: PREDNISONE20 MG PO (18:08)
== END 2018-06-17 20:05 | DRG 186 ==
LOC: EME → EDBD 03:19 → EME 03:19 → ENRESERV 07:46 → EDOF 07:46 → 4EAST 07:46 → ENRESERV 08:58 → 4EAST 11:01 → ENPENDDIS 06-17 20:00 → 4EAST 06-17 20:05
PROVIDERS: Emergency Medicine; Family Medicine; Family Medicine Sports Medicine; Internal Medicine; Internal Medicine Nephrology; Internal Medicine Pulmonary Disease
PROC: 0W9B3ZX Drainage of Left Pleural Cavity, Percutaneous Approach, Diagnostic (ICD-10-PCS; principal; 2018-06-09)
PROC: 0W993ZX Drainage of Right Pleural Cavity, Percutaneous Approach, Diagnostic (ICD-10-PCS; 2018-06-09)
PROC: 0W9B30Z Drainage of Left Pleural Cavity with Drainage Device, Percutaneous Approach (ICD-10-PCS; 2018-06-14)
DX: J90 Pleural effusion, not elsewhere classified (principal); J96.01 Acute respiratory failure with hypoxia; N17.9 Acute kidney failure, unspecified; E87.4 Mixed disorder of acid-base balance; I27.20 Pulmonary hypertension, unspecified; N39.0 Urinary tract infection, site not specified; E87.5 Hyperkalemia; T50.3X5A Adverse effect of electrolytic, caloric and water-balance agents, initial encounter; J44.9 Chronic obstructive pulmonary disease, unspecified; I13.0 Hypertensive heart and chronic kidney disease with heart failure and stage 1 through stage 4 chronic kidney disease, or unspecified chronic kidney disease; I50.9 Heart failure, unspecified; N18.3 Chronic kidney disease, stage 3 (moderate); E11.22 Type 2 diabetes mellitus with diabetic chronic kidney disease; I48.0 Paroxysmal atrial fibrillation; I48.2 Chronic atrial fibrillation; Z99.81 Dependence on supplemental oxygen; R23.8 Other skin changes; S81.802A Unspecified open wound, left lower leg, initial encounter; X58.XXXA Exposure to other specified factors, initial encounter; D64.9 Anemia, unspecified; R53.1 Weakness; I25.10 Atherosclerotic heart disease of native coronary artery without angina pectoris; I25.2 Old myocardial infarction; K21.9 Gastro-esophageal reflux disease without esophagitis; E78.5 Hyperlipidemia, unspecified; M10.9 Gout, unspecified; M19.90 Unspecified osteoarthritis, unspecified site; Z87.891 Personal history of nicotine dependence; Z79.01 Long term (current) use of anticoagulants; Z86.74 Personal history of sudden cardiac arrest; Z95.5 Presence of coronary angioplasty implant and graft
CPT/HCPCS: 36415; 36600; 49405; 71045; 71046; 76770; 76942; 80048; 80053; 81003; 82272; 82570; 82945; 83605; 83615 91; 83880; 84145 90; 84156; 84157; 84484; 85025; 85025 91; 85027; 85610; 85730; 87070; 87075; 87077; 87086; 87116; 87186; 87205; 87206; 87641; 88108; 88305; 89051; 92526 GN; 92610 GN; 93005; 93306; 94640; 94799; 97530 GO; 99281; 99285; C1729; J0696; J1120; J1940; J2930; J3010; J7512